=== PATIENT | female | born 1955 | race Caucasian/White ===

== ENCOUNTER 2016-11-22 13:59 | Inpatient (IN) | payer MEDICARE ==
[~2016-11-22] VITALS: Ht 177.8 cm; Wt 127.2 kg
[2016-11-23] MEDS ORDERED: HYDR-3133 PO (10:52)
[2016-11-23] MEDS ORDERED: ALPR.25 PO (10:52)
[2016-11-23] MEDS ORDERED: DIVA500T3 PO (10:52)
[2016-11-23] MEDS ORDERED: COLA100C3 PO (10:52)
[2016-11-23] MEDS ORDERED: OXYC1TAB36 PO (10:52)
[2016-12-10] MEDS ORDERED: INSULIN HUMAN REGULAR 1,000 UNITS/10 ML VIAL SQ PRN (06:15)
[2016-12-10] MEDS ORDERED: LACTATED RINGER'S 1000 ML IV SCH (06:15)
[2016-12-10] MEDS ORDERED: SODIUM CHLORID 0.9% 500 ML IV SCH (06:15)
[2016-12-10] MEDS ORDERED: METOPROLOL TARTRATE 25 MG TAB PO PRN (06:15)
[2016-12-10] MEDS ORDERED: VITA100064 PO (07:00)
[2016-12-10] MEDS ORDERED: SODIUM CHLOR 0.9% 250 ML INJ 250 ML ONE (07:06)
[2016-12-10] MEDS ORDERED: DEXAMETHASONE SOD PHOS 20 MG/5 ML VIAL ONE (07:06)
[2016-12-10] MEDS ORDERED: VANCOMYCIN HCL 1000 MG VIAL ONE (07:07)
[2016-12-10 07:09] VITALS: BP 119/81; PULSE 74; RESP 18; TEMP 97.6; O2SAT 97
[2016-12-10] MEDS ORDERED: TRANEXAMIC PERI-ARTICULAR 3,000 MG/NS 100 ML P-ARTICULR SCH ×2 (07:15)
[2016-12-10] MEDS ORDERED: DEXAMETHASONE SOD PHOS 20 MG/5 ML VIAL IV PRN (07:15)
[2016-12-10] MEDS: POVIDONE IODINE 7.5% SCRUB 118 ML BOTTLE TOP SCH (07:15)
[2016-12-10] MEDS ORDERED: VANCOMYCIN 1000 MG/NS 250 ML (for <70 kg) IV SCH ×2 (07:15)
[2016-12-10] MEDS ORDERED: SODIUM CHLORIDE 0.9% IV SCH (07:15)
[2016-12-10] MEDS ORDERED: EPINEPHRINE PERIART SCH ×4 (07:15)
[2016-12-10] MEDS: CHLORHEXIDINE GLUCONATE 4% SOLN 120 ML BTL TOP SCH (07:15)
[2016-12-10] MEDS ORDERED: ROPIVACAINE PERIART SCH ×4 (07:15)
[2016-12-10] MEDS ORDERED: TRANEXAMIC ACID IV SCH (07:15)
[2016-12-10] MEDS ORDERED: [UNRECOGNIZED DRUG - OTHER] PERIART SCH ×4 (07:15)
[2016-12-10] MEDS ORDERED: EXPAREL PERI-ARTICULAR INJECTION (TOTAL VOL. 60 ML) P-ARTICULR SCH ×2 (07:15)
[2016-12-10] MEDS: SODIUM CHLOR 0.9% 1000 ML INJ 1,000 ML IV SCH ×2 (07:17→17:17)
[2016-12-10] MEDS ORDERED: ENOX40P SQ (07:24)
[2016-12-10] MEDS ORDERED: PERC10TA27 PO (07:25)
[2016-12-10] MEDS ORDERED: NALOXONE HCL 0.4 MG/ML AMP IV PRN (07:30)
[2016-12-10] MEDS ORDERED: ONDANSETRON HCL 4 MG/2 ML VIAL IVP PRN (07:30)
[2016-12-10] MEDS ORDERED: DOCUSATE SODIUM 100 MG CAP PO PRN (07:30)
[2016-12-10] MEDS ORDERED: MORPHINE SULFATE 4 MG/ML INJ IV PUSH PRN (07:30)
[2016-12-10] MEDS ORDERED: MORPHINE SULFATE 30 MG/30 ML PCA IV SCH (07:30)
[2016-12-10] MEDS ORDERED: ALUMINUM/MAGNESIUM/SIMETH 30 ML CUP PO PRN (07:30)
[2016-12-10] MEDS ORDERED: Post-op Orders (for Pharmacy) MISC XX ONE (07:30)
[2016-12-10] MEDS ORDERED: BISACODYL 10 MG SUPP PR PRN (07:30)
[2016-12-10] MEDS ORDERED: SODIUM CHLORIDE 0.9% FLUSH 5 ML FLUSH IVF PRN (07:30)
[2016-12-10] MEDS: CLINDAMYCIN 900 MG/NS 100 ML IV SCH ×4 (07:30→08:49)
[2016-12-10] MEDS ORDERED: diphenhydrAMINE HCL 50 MG/ML VIAL IV PRN (07:30)
[2016-12-10] MEDS ORDERED: fentaNYL CITRATE 250 MCG/5 ML AMP ONE (07:46)
[2016-12-10] MEDS ORDERED: ACETAMINOPHEN 1000 MG/100 ML VIAL IV ONE (07:46)
[2016-12-10] MEDS ORDERED: HYDROmorphone HCL PF 2 MG/ML VIAL ONE (07:46)
[2016-12-10] MEDS ORDERED: MIDAZOLAM HCL 2 MG/2 ML VIAL ONE (07:53)
[2016-12-10] MEDS ORDERED: DEXAMETHASONE SOD PHOS 4 MG/ML VIAL ONE (07:53)
[2016-12-10] MEDS ORDERED: APREPITANT 40 MG CAP ONE (07:53)
[2016-12-10] MEDS: SODIUM CHLORIDE 0.9% FLUSH 5 ML FLUSH IVF SCH ×2 (09:00→21:25)
[2016-12-10] MEDS ORDERED: GENTAMICIN SULFATE 80 MG/2 ML VIAL IRRIGATION ONE (09:36)
[2016-12-10] MEDS ORDERED: *PROMETHAZINE 25 MG/ML VIAL PERIprocedural use ONLY ONE (11:40)
[2016-12-10] MEDS ORDERED: *morphine SULFATE 8 MG/ML PERIprocedure ONLY ONE ×2 (11:58→12:17)
--- NOTE | 2016-12-10 12:43 | RADRPT ---
EXAM DATE/TIME: 12/10/2016 12:01 [facility] COMPARISON: No previous studies available for comparison. INDICATIONS : Post op left knee replacement surgery MEDICAL HISTORY : None. SURGICAL HISTORY : None. ENCOUNTER: Initial ACUITY: 1 day PAIN SCORE: 8/10 LOCATION: Left knee FINDINGS: There is placement of total knee prosthesis which appears to be well-seated. CONCLUSION: Well-seated total knee prosthesis Raymundo Cornelius MD on December 10, 2016 at 12:41 Board Certified Radiologist. This report was verified electronically.
[2016-12-10] MEDS ORDERED: BUPIVACAINE LIPOSOME PF 1.3% 20 ML VIAL ONE (12:57)
[2016-12-10] MEDS ORDERED: ONDANSETRON HCL 4 MG/2 ML VIAL IV PUSH ONE (13:27)
[2016-12-10] MEDS ORDERED: ePHEDrine/NS 50 MG/5 ML SYR IV ONE (13:27)
[2016-12-10] MEDS ORDERED: LACTATED RINGER'S 1000 ML INJ 1,000 ML IV ONE (13:27)
[2016-12-10] MEDS ORDERED: PROPOFOL 200 MG/20 ML AMP IV ONE (13:27)
[2016-12-10 14:00] VITALS: BP 123/75; PULSE 71; RESP 18; TEMP 96; O2SAT 95
[2016-12-10] MEDS: PCA - TOTAL MG MORPHINE DELIVERED PER SHIFT SCH ×2 (14:00→22:00)
[2016-12-10] MEDS: hydrOXYzine HCL 25 MG TAB PO SCH ×2 (14:10→17:01)
[2016-12-10] MEDS: oxyCODONE/ACETAMINOPHEN 5 MG/325 MG TAB PO PRN ×2 (14:10→21:24)
[2016-12-10] MEDS: CLINDAMYCIN INJ 900 MG in SODIUM CHLORIDE 0.9% INJ 100 ML IV SCH (17:01)
--- NOTE | 2016-12-10 17:19 | PD.CONS ---
HPI Service [facility] Consult Requested By Dr. Watts Reason for Consult Apical management Primary Care Physician Mey Sofia MD Diagnoses: History of Present Illness Patient is a very pleasant 60-year-old female who is admitted under Dr. Arturo Watts service and underwent left total knee arthroplasty today. Patient did has history of Mnire's disease, seizure disorder chronic with the cardia. Which are all well controlled. Patient is now seen post op , appears very comfortable on TRANSFUSION AIDE pump and looking forward to more physical therapy. Last time she had her right knee arthroplasty done in October and went home. This time patient had decided to go to rehabilitation for further therapy. Review of Systems Constitutional: DENIES: Fever, Weight loss, Chills, Change in appetite Eyes: DENIES: Blurred vision, Double Vision Ears, nose, mouth, throat: DENIES: Tinnitus, Ear Pain, Epistaxis, Odynophagia Respiratory: DENIES: Cough, Hemoptysis, Sputum production, Shortness of breath Cardiovascular: DENIES: Chest pain, Palpitations, Dyspnea on Exertion, Lower Extremity Edema, Orthopnea Gastrointestinal: DENIES: Black stools, Bloody stools, Difficulty Swallowing, Anorexia Genitourinary: DENIES: Urgency, Hematuria, Vaginal discharge Musculoskeletal: DENIES: Joint pain, Stiffness Integumentary: DENIES: Pruritus Hematologic/lymphatic: DENIES: Bruising Immunologic/allergic: DENIES: Urticaria Neurologic: DENIES: Headache, Speech Problems, Tremor Psychiatric: DENIES: Suicidal Ideation, Homicidal Ideation Past Family Social History Allergies: Coded Allergies: Adhesives (Verified Allergy, Unknown, mclean, 12/10/16) Aleve (Verified Allergy, Unknown, ANAPHYLAXIS, 12/10/16) Aspirin (Verified Allergy, Unknown, ANAPHYLAXIS, 12/10/16) Keflex (Verified Allergy, Unknown, ANAPHYLAXIS, 12/10/16) Latex (Verified Allergy, Unknown, blisters, 12/10/16) Nonsteroidal Anti-Inflammatory Agts (Verified Allergy, Unknown, Anaphylaxis, 12/10/16) Penicillin (Verified Allergy, Unknown, ANAPHYLAXIS, 12/10/16) Past Medical History History of Mnire's disease for 12 years 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 Seizure disorder urticaria of unknown origin Reported Medications She is on Xanax 0.25 mg at bedtime Depakote 500 mg at bedtime Hydroxyzine 25 mg every 8 for tachycardia TRANSFUSION AIDE pump Active Ordered Medications See EMR Family History Noncontributory Social History Denies smoking or alcohol use Physical Exam Vital Signs Vital Signs Date Time Temp Pulse Resp B/P Pulse Ox O2 Delivery O2 Flow Rate FiO2 12/10/16 14:00 96.0 71 18 123/75 95 12/10/16 13:12 97.9 84 14 109/52 95 Nasal Cannula 2 12/10/16 13:00 78 12 123/70 94 12/10/16 12:45 78 16 115/79 90 12/10/16 12:30 82 12 125/95 94 12/10/16 12:30 12 12/10/16 12:15 85 14 136/70 94 12/10/16 12:00 88 14 164/72 94 12/10/16 11:45 94 12 161/87 97 Simple Mask 12/10/16 11:39 97.5 101 12 104/80 97 Simple Mask 6 12/10/16 07:09 97.6 74 18 119/81 97 Physical Exam GENERAL: This is a well-nourished, well-developed patient, in no apparent distress. SKIN: No rashes, ecchymoses or lesions. Cool and dry. HEAD: Atraumatic. Normocephalic. EYES: Pupils equal round and reactive. Extraocular motions intact. No scleral icterus. ENT: Nose without bleeding, . Throat without erythema, Airway patent. NECK: Trachea midline. No JVD or lymphadenopathy. Supple, nontender, no meningeal signs. CARDIOVASCULAR: Regular rate and rhythm without murmurs, gallops, or rubs. RESPIRATORY: Clear to auscultation. Breath sounds equal bilaterally. No wheezes , rales, or rhonchi. GASTROINTESTINAL: Abdomen soft, non-tender, nondistended. No hepato-splenomegaly , or palpable masses. No guarding. MUSCULOSKELETAL: Extremities without clubbing, cyanosis, or edema. No joint tenderness, effusion, or edema noted. No calf tenderness. Negative Homans sign bilaterally. right LE on CPM gutiérrez in place NEUROLOGICAL: grossly unremarkable Laboratory Laboratory Tests Test 12/10/16 06:55 Blood Type O POSITIVE Antibody Screen NEGATIVE Imaging Last Impressions Knee X-Ray 12/10/16 6511 Signed Impressions: Service Date/Time: Saturday, December 10, 2016 12:01 - CONCLUSION: Well-seated total knee prosthesis Raymundo Cornelius MD Assessment and Plan Assessment and Plan 61-year-old female Status post left total knee arthroplasty Orthopedic service following PT daily When necessary IV pain meds and by mouth per primary service history of seizure disorder/benign temporal lobe tumor. Continue on Depakote for seizure prophylaxis History of urticaria of unknown origin Continue on hydroxyzine 25 mg every 8 History of anxiety disorder Continue on her Xanax 0.25 mg at bedtime Lovenox for DVT prophylaxis Case management this time patient wants to go to rehabilitation for detention facility for physical therapy Thank you for this consult we'll follow patient in-house with you Prashanth Hector MD Dec 10, 2016 17:19
[2016-12-10 18:01] VITALS: O2SAT 94
[2016-12-10 20:12] VITALS: O2SAT 94
[2016-12-10 20:30] VITALS: BP 117/66; PULSE 72; RESP 17; TEMP 96.1; O2SAT 96
[2016-12-10] MEDS: ALPRAZolam 0.25 MG TAB PO SCH (21:23)
[2016-12-10] MEDS: DIVALPROEX SODIUM E.R. 500 MG TAB PO SCH (21:23)
[2016-12-11] VITALS (7 sets, daily range): BP systolic 102–182; BP diastolic 56–86; PULSE 63–103; RESP 16–18; TEMP 95.8–98.9; O2SAT 97–100
[2016-12-11] MEDS: oxyCODONE/ACETAMINOPHEN 5 MG/325 MG TAB PO PRN ×4 (01:48→15:36)
[2016-12-11] MEDS: CLINDAMYCIN INJ 900 MG in SODIUM CHLORIDE 0.9% INJ 100 ML IV SCH ×2 (01:49→11:00)
[2016-12-11] MEDS: SODIUM CHLOR 0.9% 1000 ML INJ 1,000 ML IV SCH ×2 (02:48→12:43)
[2016-12-11] MEDS: hydrOXYzine HCL 25 MG TAB PO SCH ×3 (04:42→20:04)
[2016-12-11] MEDS: PCA - TOTAL MG MORPHINE DELIVERED PER SHIFT SCH ×3 (06:00→20:00)
[2016-12-11 06:11] LABS: HEMATOCRIT 34.9 % (35.0-46.0); MEAN CELL VOLUME 81.3 FL (80.0-100.0); MEAN CORPUSCULAR HGB CONC 33.2 % (32.0-36.0); PLATELET COUNT 232 TH/MM3 (150-450); RED CELL DISTRIBUTION WIDTH 15.4 % (11.6-17.2); REVIEW FLAG FINAL; WHITE BLOOD COUNT 9.9 TH/MM3 (4.0-11.0)
[2016-12-11] MEDS: CHLORHEXIDINE GLUCONATE 4% SOLN 120 ML BTL TOP SCH (06:12)
[2016-12-11] MEDS: POVIDONE IODINE 7.5% SCRUB 118 ML BOTTLE TOP SCH (06:12)
[2016-12-11 06:35] LABS: BICARBONATE 28.1 MEQ/L (21.0-32.0); POTASSIUM 4.1 MEQ/L (3.5-5.1)
--- NOTE | 2016-12-11 08:48 | PD.ORT.PN ---
Subjective Post Op Day #: 1 Subjective Remarks painful but tolerable. Objective Vitals Vital Signs Date Time Temp Pulse Resp B/P Pulse Ox O2 Delivery O2 Flow Rate FiO2 12/11/16 08:00 95.8 69 18 119/63 98 12/11/16 06:00 16 12/11/16 04:15 96.2 70 16 102/56 97 12/11/16 04:00 Room Air 12/11/16 00:34 96.2 63 16 120/62 97 12/11/16 00:00 Room Air 12/10/16 22:00 16 12/10/16 20:30 96.1 72 17 117/66 96 12/10/16 20:12 94 12/10/16 20:00 Room Air 12/10/16 18:01 94 12/10/16 14:00 96.0 71 18 123/75 95 12/10/16 13:12 97.9 84 14 109/52 95 Nasal Cannula 2 12/10/16 13:00 78 12 123/70 94 12/10/16 12:45 78 16 115/79 90 12/10/16 12:30 82 12 125/95 94 12/10/16 12:30 12 12/10/16 12:15 85 14 136/70 94 12/10/16 12:00 88 14 164/72 94 12/10/16 11:45 94 12 161/87 97 Simple Mask 12/10/16 11:39 97.5 101 12 104/80 97 Simple Mask 6 I/O 12/10/16 12/10/16 12/10/16 12/11/16 12/11/16 12/11/16 07:00 15:00 23:00 07:00 15:00 23:00 Intake Total 160 ml 1448 ml 1247 ml Output Total 625 ml 600 ml Balance 160 ml 823 ml 647 ml Intake Oral 720 ml 360 ml IV Total 160 ml 728 ml 887 ml Output Urine Total 625 ml 600 ml # Voids 2 # Bowel Movements 0 0 Result Diagram: 12/11/16 0550 12/11/16 0530 Objective Remarks in bed, nad dressing c/d/i neg homans nvi Assessment & Plan Ortho Post Op Day #: 1 Problem List: Assessment and Plan s/p L TKA wbat daily dressing change lovenox d/c planning to snf 3008 signed rx in chart f/up dr. orta 2 weeks Arturo Ramires Dec 11, 2016 08:48
--- NOTE | 2016-12-11 08:50 | HHI.DCPOC ---
Discharge Care Plan Diagnosis: (1) Primary localized osteoarthrosis, lower leg Your Health Problems Are: Difficulty with ADL Goals to Promote Your Health * To prevent worsening of your condition and complications * To maintain your health at the optimal level Directions to Meet Your Goals Take your medications as prescribed Follow your dietary instruction Follow activity as directed Keep your appointments as scheduled Take your immunizations and boosters as scheduled If your symptoms worsen call your PCP, if no PCP go to Urgent Care Center or Emergency Room Smoking is Dangerous to Your Health. Avoid second hand smoke Call the 24-hour hour crisis hotline for domestic abuse at Arturo Ramires Dec 11, 2016 08:50
[2016-12-11] MEDS ORDERED: CPMMACHINE (08:51)
[2016-12-11] MEDS ORDERED: INFLUENZA VIRUS VACCINE (QUADRIVALENT) 0.5 ML SYR IM ONE (09:00)
[2016-12-11] MEDS ORDERED: MAGNESIUM HYDROXIDE SUSP 30 ML CUP PO ONE (09:30)
[2016-12-11] MEDS ORDERED: DOCUSATE SODIUM 50 MG/SENNA 8.6 MG TAB PO ONE (09:30)
[2016-12-11] MEDS ORDERED: PNEUMOCOCCAL POLYVALENT INJ 25 MCG/0.5 ML SYR IM ONE (10:00)
[2016-12-11] MEDS: CHOLECALCIFEROL (VIT D3) 1000 UNIT TAB PO SCH (11:03)
[2016-12-11] MEDS: ENOXAPARIN SODIUM 40 MG/0.4 ML SYRINGE SQ SCH (11:04)
[2016-12-11] MEDS: SODIUM CHLORIDE 0.9% FLUSH 5 ML FLUSH IVF SCH ×2 (11:04→19:59)
[2016-12-11] MEDS ORDERED: PANTOPRAZOLE SOD 40 MG DELAYED RELEASE TAB PO ONE (14:15)
--- NOTE | 2016-12-11 14:21 | HHI.PR ---
Subjective Remarks Seen this morning around 11 AM. She says she is feeling well. Denies any chest pain or shortness of breath. She did have nausea previously, however none today. Positive flatus. No bowel movements yet however. Denies any abdominal pain. He does report some acid reflux. She says she typically gets this on a regular basis, however eats a Sarai apple keeps this at bay. She previously had been on PPI before switching to Sarai apples. She is amenable to starting PPI. Objective Vital Signs Date Time Temp Pulse Resp B/P Pulse Ox O2 Delivery O2 Flow Rate FiO2 12/11/16 12:00 96.2 74 18 152/79 98 12/11/16 11:00 Room Air 12/11/16 08:00 95.8 69 18 119/63 98 12/11/16 06:00 16 12/11/16 04:15 96.2 70 16 102/56 97 12/11/16 04:00 Room Air 12/11/16 00:34 96.2 63 16 120/62 97 12/11/16 00:00 Room Air 12/10/16 22:00 16 12/10/16 20:30 96.1 72 17 117/66 96 12/10/16 20:12 94 12/10/16 20:00 Room Air 12/10/16 18:01 94 I/O 12/10/16 12/10/16 12/10/16 12/11/16 12/11/16 12/11/16 07:00 15:00 23:00 07:00 15:00 23:00 Intake Total 160 ml 1448 ml 1247 ml Output Total 625 ml 600 ml Balance 160 ml 823 ml 647 ml Intake Oral 720 ml 360 ml IV Total 160 ml 728 ml 887 ml Output Urine Total 625 ml 600 ml # Voids 2 # Bowel Movements 0 0 Result Diagram: 12/11/16 0550 12/11/16 0530 Objective Remarks GENERAL: Sitting up in bed. Appears comfortable. Alert and oriented 3. SKIN: Warm and dry. HEAD: Normocephalic. EYES: No scleral icterus. No injection or drainage. NECK: Supple, trachea midline. No JVD or lymphadenopathy. CARDIOVASCULAR: Regular rate and rhythm without murmurs, gallops, or rubs. RESPIRATORY: Breath sounds equal bilaterally. No accessory muscle use. GASTROINTESTINAL: Abdomen soft, non-tender, nondistended. MUSCULOSKELETAL: No cyanosis, or edema. Peripheral perfusion intact. Postoperative knee not examined. BACK: Nontender without obvious deformity. No CVA tenderness. A/P Assessment and Plan Postoperative left total knee arthroplasty Postsurgical management as per surgical service PTOT. -Pain management as per surgical service. Await return of bowel function. Laxatives ordered 12/11 History of GERD. -She had previously been on PPI. -With complaints of acid reflux on 12/11 12/11. Start PPI. -Continue to monitor Stopped constipation. Laxatives ordered. Monitor for return of bowel function History of seizure disorder. History of benign temporal lobe tumor Continue on Depakote for seizure prophylaxis. History of urticaria of unknown origin Continue H1 maycol as necessary area Anxiety disorder. Chronic. Continue Xanax at bedtime as needed DVT prophylaxis. As per surgical service. Discharge Planning Physical therapy following. Possible inpatient rehabilitation. Awaiting return of bowel function. -As per surgical service Arturo Bass MD Dec 11, 2016 14:21
[2016-12-11] MEDS ORDERED: oxyCODONE/ACETAMINOPHEN 10 MG/325 MG TAB PO PRN (17:00)
[2016-12-11] MEDS: DOCUSATE SODIUM 100 MG CAP PO SCH (19:57)
[2016-12-11] MEDS: MULTIVITAMINS/MINERALS THERAPEUTIC TAB PO SCH (19:58)
[2016-12-11] MEDS: ALPRAZolam 0.25 MG TAB PO SCH (19:58)
[2016-12-11] MEDS: DIVALPROEX SODIUM E.R. 500 MG TAB PO SCH (19:58)
[2016-12-11] MEDS: oxyCODONE/ACETAMINOPHEN 10 MG/325 MG TAB PO PRN ×2 (19:59→23:24)
[2016-12-12] VITALS (7 sets, daily range): BP systolic 98–139; BP diastolic 55–71; PULSE 75–94; RESP 16–18; TEMP 96–98.3; O2SAT 96–100
[2016-12-12] MEDS: oxyCODONE/ACETAMINOPHEN 10 MG/325 MG TAB PO PRN ×5 (04:12→20:43)
[2016-12-12] MEDS: PCA - TOTAL MG MORPHINE DELIVERED PER SHIFT SCH ×3 (06:00→20:44)
[2016-12-12] MEDS: CHLORHEXIDINE GLUCONATE 4% SOLN 120 ML BTL TOP SCH (07:15)
[2016-12-12] MEDS: POVIDONE IODINE 7.5% SCRUB 118 ML BOTTLE TOP SCH (07:15)
[2016-12-12] MEDS: hydrOXYzine HCL 25 MG TAB PO SCH ×3 (07:54→18:27)
[2016-12-12] MEDS: PANTOPRAZOLE SOD 40 MG DELAYED RELEASE TAB PO SCH (07:54)
[2016-12-12] MEDS: DOCUSATE SODIUM 100 MG CAP PO SCH ×2 (07:54→20:43)
[2016-12-12] MEDS: MULTIVITAMINS/MINERALS THERAPEUTIC TAB PO SCH ×2 (07:54→20:43)
[2016-12-12] MEDS: MAGNESIUM HYDROXIDE SUSP 30 ML CUP PO PRN ×2 (07:55→20:44)
[2016-12-12] MEDS: SODIUM CHLORIDE 0.9% FLUSH 5 ML FLUSH IVF SCH ×2 (07:56→20:43)
[2016-12-12 08:28] LABS: HEMATOCRIT 34.3 % (35.0-46.0); MEAN CORPUSCULAR HEMOGLOBIN 27.3 PG (27.0-34.0); MEAN CORPUSCULAR HGB CONC 33.3 % (32.0-36.0); PLATELET COUNT 241 TH/MM3 (150-450); RED BLOOD COUNT 4.18 MIL/MM3 (4.00-5.30); RED CELL DISTRIBUTION WIDTH 15.8 % (11.6-17.2); REVIEW FLAG FINAL; WHITE BLOOD COUNT 9.1 TH/MM3 (4.0-11.0)
--- NOTE | 2016-12-12 08:30 | PD.ORT.PN ---
Subjective Post Op Day #: 2 Subjective Remarks pain was somewhat uncontrolled yesterday and pain meds increased. better now. Objective Vitals Vital Signs Date Time Temp Pulse Resp B/P Pulse Ox O2 Delivery O2 Flow Rate FiO2 12/12/16 08:00 98.2 76 18 131/63 100 12/12/16 06:43 Room Air 12/12/16 05:12 20 12/12/16 04:10 96.0 91 16 98/58 96 12/12/16 00:14 98.3 94 17 138/67 97 12/11/16 20:14 98.9 103 18 182/86 97 12/11/16 16:12 98 21 12/11/16 16:00 96.0 81 18 157/79 100 12/11/16 12:00 96.2 74 18 152/79 98 12/11/16 11:00 Room Air I/O 12/11/16 12/11/16 12/11/16 12/12/16 12/12/16 12/12/16 07:00 15:00 23:00 07:00 15:00 23:00 Intake Total 1247 ml 600 ml 240 ml 720 ml Output Total 600 ml 100 ml Balance 647 ml 600 ml 240 ml 620 ml Intake Oral 360 ml 600 ml 240 ml 720 ml IV Total 887 ml Output Urine Total 600 ml Drainage Total 100 ml # Voids 2 3 3 6 # Bowel Movements 0 0 0 0 Result Diagram: 12/12/16 0720 12/11/16 0530 Objective Remarks in bed, nad incision no erythema, no drainage neg homans nvi Assessment & Plan Ortho Post Op Day #: 2 Problem List: Assessment and Plan s/p L TKA wbat daily dressing change lovenox percocet 10mg d/c planning to snf 3008 signed rx in chart f/up dr. orta 2 weeks Arturo Ramires Dec 12, 2016 08:30
[2016-12-12 08:53] LABS: BICARBONATE 28.8 MEQ/L (21.0-32.0)
[2016-12-12] MEDS: CHOLECALCIFEROL (VIT D3) 1000 UNIT TAB PO SCH (09:00)
[2016-12-12 09:09] LABS: POTASSIUM 4.2 MEQ/L (3.5-5.1)
[2016-12-12] MEDS: SODIUM CHLOR 0.9% 1000 ML INJ 1,000 ML IV SCH ×2 (09:17→19:17)
[2016-12-12] MEDS ORDERED: DOCUSATE SODIUM 50 MG/SENNA 8.6 MG TAB PO ONE (10:00)
[2016-12-12] MEDS ORDERED: MAGNESIUM HYDROXIDE SUSP 30 ML CUP PO ONE (11:00)
[2016-12-12] MEDS: ENOXAPARIN SODIUM 40 MG/0.4 ML SYRINGE SQ SCH (11:29)
[2016-12-12] MEDS: DIVALPROEX SODIUM E.R. 500 MG TAB PO SCH (20:43)
[2016-12-12] MEDS: ALPRAZolam 0.25 MG TAB PO SCH (20:43)
[2016-12-12] MEDS ORDERED: MAGNESIUM CITRATE SOLN 300 ML BTL PO ONE (22:00)
--- NOTE | 2016-12-12 22:02 | HHI.PR ---
Subjective Remarks Patient seen this morning around 10:30 AM. Patient says she is feeling all right. Reports that acid reflux has improved. She reports poor appetite. Still no bowel movement. Denies any abdominal pain. Enema recommended, patient declines. Objective Vital Signs Date Time Temp Pulse Resp B/P Pulse Ox O2 Delivery O2 Flow Rate FiO2 12/12/16 20:00 97.6 82 18 119/58 100 12/12/16 16:00 96.4 88 18 139/71 100 12/12/16 12:00 97.6 75 18 116/55 98 12/12/16 09:20 98 21 12/12/16 08:00 98.2 76 18 131/63 100 12/12/16 06:43 Room Air 12/12/16 05:12 20 12/12/16 04:10 96.0 91 16 98/58 96 12/12/16 00:14 98.3 94 17 138/67 97 I/O 12/11/16 12/11/16 12/11/16 12/12/16 12/12/16 12/12/16 07:00 15:00 23:00 07:00 15:00 23:00 Intake Total 1247 ml 600 ml 240 ml 720 ml 760 ml Output Total 600 ml 100 ml Balance 647 ml 600 ml 240 ml 620 ml 760 ml Intake Oral 360 ml 600 ml 240 ml 720 ml 760 ml IV Total 887 ml Output Urine Total 600 ml Drainage Total 100 ml # Voids 2 3 3 6 5 # Bowel Movements 0 0 0 0 0 Result Diagram: 12/12/1671912/12/16719 Objective Remarks GENERAL: Sitting up in bed. Appears comfortable. Alert and oriented 3.no changes on exam SKIN: Warm and dry. HEAD: Normocephalic. EYES: No scleral icterus. No injection or drainage. NECK: Supple, trachea midline. No JVD . CARDIOVASCULAR: Regular rate and rhythm without murmurs, gallops, or rubs. RESPIRATORY: Breath sounds equal bilaterally. No accessory muscle use. GASTROINTESTINAL: Abdomen soft, non-tender, nondistended. MUSCULOSKELETAL: No cyanosis, or edema. Peripheral perfusion intact. Postoperative knee not examined. BACK: Nontender without obvious deformity. No CVA tenderness. A/P Assessment and Plan Postoperative left total knee arthroplasty Postsurgical management as per surgical service PTOT. -Pain management as per surgical service. Await return of bowel function. Laxatives ordered again on 12/12. Magnesium citrate ordered. History of GERD. -She had previously been on PPI. -With complaints of acid reflux on 12/11 12/11. Start PPI. -12/12. Acid reflux much improved. -Continue to monitor Postoperative constipation. Laxatives ordered again. Monitor for return of bowel function History of seizure disorder. History of benign temporal lobe tumor Continue on Depakote for seizure prophylaxis. History of urticaria of unknown origin Continue H1 maycol as necessary Anxiety disorder. Chronic. Continue Xanax at bedtime as needed DVT prophylaxis. As per surgical service. Discharge Planning Physical therapy following. Possible inpatient rehabilitation. Awaiting return of bowel function. -As per surgical service Arturo Bass MD Dec 12, 2016 22:02
[2016-12-13] VITALS: BP 127/61; PULSE 85; RESP 18; TEMP 99.2; O2SAT 95
[2016-12-13] MEDS: oxyCODONE/ACETAMINOPHEN 10 MG/325 MG TAB PO PRN ×3 (01:18→09:53)
[2016-12-13] MEDS: SODIUM CHLOR 0.9% 1000 ML INJ 1,000 ML IV SCH (01:46)
[2016-12-13] MEDS: PCA - TOTAL MG MORPHINE DELIVERED PER SHIFT SCH (01:46)
[2016-12-13 04:00] VITALS: BP 114/61; PULSE 82; RESP 20; TEMP 97.4; O2SAT 94
[2016-12-13 04:59] LABS: HEMATOCRIT 37.6 % (35.0-46.0); MEAN CELL VOLUME 81.6 FL (80.0-100.0); MEAN CORPUSCULAR HEMOGLOBIN 26.9 PG (27.0-34.0); PLATELET COUNT 269 TH/MM3 (150-450); RED BLOOD COUNT 4.61 MIL/MM3 (4.00-5.30); RED CELL DISTRIBUTION WIDTH 15.6 % (11.6-17.2); REVIEW FLAG FINAL; WHITE BLOOD COUNT 7.6 TH/MM3 (4.0-11.0)
[2016-12-13 05:29] LABS: BICARBONATE 25.9 MEQ/L (21.0-32.0)
[2016-12-13 08:22] VITALS: BP 146/70; PULSE 89; RESP 16; TEMP 97.5; O2SAT 98
--- NOTE | 2016-12-13 08:37 | PD.ORT.PN ---
Subjective Post Op Day #: 3 Subjective Remarks pain better. doing well with PT. had BM. Objective Vitals Vital Signs Date Time Temp Pulse Resp B/P Pulse Ox O2 Delivery O2 Flow Rate FiO2 12/13/16 04:00 97.4 82 20 114/61 94 12/13/16 00:00 99.2 85 18 127/61 95 12/12/16 20:00 97.6 82 18 119/58 100 12/12/16 16:00 96.4 88 18 139/71 100 12/12/16 12:00 97.6 75 18 116/55 98 12/12/16 09:20 98 21 I/O 12/12/16 12/12/16 12/12/16 12/13/16 12/13/16 12/13/16 07:00 15:00 23:00 07:00 15:00 23:00 Intake Total 720 ml 760 ml 365 ml 480 ml Output Total 100 ml Balance 620 ml 760 ml 365 ml 480 ml Intake Oral 720 ml 760 ml 365 ml 480 ml Drainage Total 100 ml # Voids 6 5 2 2 # Bowel Movements 0 0 1 Result Diagram: 12/13/16 0430 12/13/16 0430 Objective Remarks in chiar, nad, doing exercises with PT dressing c/d/i neg homans nvi Assessment & Plan Ortho Post Op Day #: 3 Problem List: Assessment and Plan s/p L TKA wbat daily dressing change lovenox percocet 10mg d/c planning to snf - cleared for d/c 3008 signed rx in chart f/up dr. orta 2 weeks Arturo Ramires Dec 13, 2016 08:36
[2016-12-13] MEDS: SODIUM CHLORIDE 0.9% FLUSH 5 ML FLUSH IVF SCH (09:00)
[2016-12-13] MEDS ORDERED: CHOLECALCIFEROL (VIT D3) 5000 UNIT CAP PO SCH (09:30)
[2016-12-13] MEDS: PANTOPRAZOLE SOD 40 MG DELAYED RELEASE TAB PO SCH (09:52)
[2016-12-13] MEDS: DOCUSATE SODIUM 100 MG CAP PO SCH (09:52)
[2016-12-13] MEDS: hydrOXYzine HCL 25 MG TAB PO SCH (09:53)
[2016-12-13] MEDS: MULTIVITAMINS/MINERALS THERAPEUTIC TAB PO SCH (09:53)
[2016-12-13] MEDS: ENOXAPARIN SODIUM 40 MG/0.4 ML SYRINGE SQ SCH (09:54)
--- NOTE | 2016-12-13 13:23 | MP ---
cc: VIC WATTS DATE OF SURGERY 12/10/2016 PREOPERATIVE DIAGNOSIS Left knee osteoarthritis POSTOPERATIVE DIAGNOSES Left knee osteoarthritis PROCEDURE Left total knee arthroplasty SURGEON Dr. Vic Watts METAL WIRE COATING OPERATOR SATINDER Dias ANESTHESIA General with an adductor canal block. ESTIMATED BLOOD LOSS Less than 50 cc TOURNIQUET TIME 70 minutes at 275 mmHg COMPLICATIONS None IMPLANTS USED [employer] Oxinium size 6 posterior stabilized femoral component, size 5 tibial baseplate, size 11 mm polyethylene tibial insert, size 35 mm patella. JUSTIFICATION This patient is a 61-year-old female who has a history of severe end-stage osteoarthritis involving the left knee. She has severe disabling pain with standing, walking, ambulation and weight-bearing activities. She has pain at rest. She has failed greater than three months of nonoperative conservative treatment to include medication therapy, injections, ambulatory assisted aids, home exercise program, activity modification, weight loss attempts. X-ray of the left knee reveals severe end-stage osteoarthritis with [id number] joint space narrowing, subchondral sclerosis, subchondral cyst osteophyte formation and varus deformity. The patient was counseled as to the risks, benefits and alternatives to a total knee arthroplasty. The risk were discussed which include, but are not limited to anesthesia, bleeding, infection, damage to nerves or blood vessels, pain, stiffness, failure of components, blood clots, pulmonary embolism and even . The patient's pain was severe. She favored the benefits over the risks and did wish to proceed with surgery. PROCEDURE IN DETAIL A written consent was obtained. The patient identified by name, taken to the operating room, placed in the supine position and general anesthesia was administered, as well as 900 mg of IV clindamycin and one gram of IV vancomycin. She does have A PENICILLIN ALLERGY. A well-padded tourniquet was placed on the left thigh. The left lower extremity was prepped and draped using as Isopropyl alcohol, Hibiclens solution and Chloraprep solution. After an appropriate time-out was performed, an Esmarch bandage was used to exsanguinate the left lower extremity. The tourniquet inflated to 275 mmHg. A longitudinal incision made over the anterior aspect of the left knee. A medial parapatellar arthrotomy was performed. The patella was everted. Approximately 7.5 mm of patella was resected. A size 35 mm guide was placed. Three drills were placed and the 35 mm trial fit well. Attention was turned to the femur where an intramedullary guide sona was placed and the distal femoral cutting guide was set to remove 9 mm of distal femur 5 degrees off the anatomic valgus axis alignment. An oscillating saw was used to perform the distal femoral cut. Attention was turned to the tibia where extramedullary tibial guide was used and the guide was set to remove 9 mm off the lowest portion of the lateral tibial plateau. The tibia guide was pinned in place and tibia cut was performed. A 9-mm spacer block showed full extension. Attention turned back to the femur where the AP sizing block measured a size 6. The 3 degree external rotation anterior reference guide was used to pin a size [address]. The anterior, posterior and chamfer cuts were performed. A size 6 PCL box guide pinned in placed and the PCL was boxed out with a drilled and an osteotome. The medial and lateral meniscus remnants were removed, as well as bone and soft tissue debris from the posterior portion of the knee. A size 5 tibia baseplate was then pinned in place. The tibia was drilled and punched. Trial components were evaluated and final components were cemented in place. With the 11 mm polyethylene tibial insert, the leg could achieve full extension 0 degrees of flexion to 140. No evidence of tibial lift-off. Varus-valgus balance appeared appropriate and symmetric and the patella was noted to track centrally. The tourniquet was deflated. Bovie cautery was used for hemostasis. The knee was thoroughly irrigated sterile saline pulse lavage antibiotic impregnated solution. The arthrotomy incision was closed #1 Vicryl suture. The subcutaneous tissue layer was closed with 2-0 Vicryl suture. The skin was closed with Dermabond. A sterile dressing applied. The patient tolerated the procedure well. No intraoperative noted. Jomar Ramires, physician retail assistant store manager certified, was present during the entire procedure to include patient positioning and the procedure itself. The medical necessity of a physician retail assistant store manager was indicated due to the complexity of the procedure. He assisted with appropriate manipulation of the leg and also traction of muscle, tendon, bone and neurovascular structures. He assisted with both preparation of the bone and implantation of the prosthetic replacement. MD MAINOR Melchor/ДМИТРИЙ Holley: 12/10/2016/11:04 AM /1:09 PM
--- NOTE | 2016-12-20 10:45 | MD ---
cc: VIC WATTS ADMISSION DATE: 12/10/2016 DISCHARGE DATE: 12/13/2016 ADMISSION DIAGNOSIS Severe degenerative osteoarthritis, left knee. DISCHARGE DIAGNOSIS Severe degenerative osteoarthritis, left knee. HISTORY OF PRESENT ILLNESS Mrs. Ceja is a 61-year-old female who presented to the orthopedic clinic at [facility] for evaluation by Dr. Vic Watts regarding her progressive left knee pain. The patient states she has been treated for this ailment for numerous years and she also has a history of a right total knee arthroplasty with good success. Regarding her left knee she states the pain has been progressive and is currently inhibiting her activities of daily living. She states it is a constant severe aching sensation aggravated by weightbearing activities. She has no significant alleviating factors at this point in time, although in the past she has tried medications, bracing, physical therapy and home exercise program, weight loss attempts as well as multiple injections in the left knee without long-lasting relief. The patient does have x-ray evidence of severe degenerative osteoarthritis of the left knee. While in the office the patient was counseled on her diagnosis and treatment options, risks, benefits and indications were discussed. The patient did elect to proceed with surgical intervention to include a left total knee arthroplasty. DATE OF SURGERY: 12/10/2016, left total knee arthroplasty. POSTOP Postop after surgery the patient was admitted to [facility] where she received appropriate medical management, pain control, DVT prophylaxis as well as physical therapy. DISCHARGE Once being discharged from the hospital the patient is cleared to go to a halfway facility. She is in stable condition. The patient may weight-bear as tolerated. She has received daily dressing changes and has been instructed on appropriate wound care management. The patient has been provided prescriptions for pain control as well as DVT prophylaxis medication. She has also been provided a follow-up appointment to see Dr. Vic Watts in the office approximately 2 weeks from her date of surgery. The patient has asked appropriate questions which have all been answered. Patient is cleared for discharge. Dictated by: RANJITH Schwartz MD MAINOR Melchor/ERIKA /8:40 AM /10:46 AM
== END 2016-12-13 11:15 | DRG 470 ==
LOC: HSDI 12-10 05:42 → N06A 12-10 13:45
PROVIDERS: ADMIT Orthopaedic Surgery Sports Medicine; ATTEND Orthopaedic Surgery Sports Medicine
PROC: 3E0T3CZ (ICD-10-PCS; 2016-12-10)
PROC: 0SRD0J9 Replacement of Left Knee Joint with Synthetic Substitute, Cemented, Open Approach (ICD-10-PCS; principal; 2016-12-10 08:37)
DX: M17.12 Unilateral primary osteoarthritis, left knee (principal); F41.9 Anxiety disorder, unspecified; G40.909 Epilepsy, unspecified, not intractable, without status epilepticus; K21.9 Gastro-esophageal reflux disease without esophagitis; K59.00 Constipation, unspecified; Z23 Encounter for immunization; Z86.011 Personal history of benign neoplasm of the brain
CPT/HCPCS: 73560; 80048; 85027; 86850; 86900; 86901; 90471; 90732; 94150; C1776; C9290; G0009; J0131; J1100; J1170; J1580; J1650; J2250; J2270; J2405; J2550; J3010; J3370; J7030; J7050; J7120; J8501; L1830

== ENCOUNTER → 2016-11-23 | Outpatient (CLI) | payer MEDICARE ==
[~2016-11-23] MED LIST: ALPR.25 PO; COEN1CAP4 PO; COLA100C3 PO; CPMMACHINE; DEPA500T3 PO; DHEA25CA PO; DIVA500T3 PO; ENOX40P SQ; HYDR-3133 PO; HYDR10SO PO; LINA145C PO; LORA10TA PO; MILK250C2 PO; NORC7.5T PO; OMEG100037 PO; OXYC1TAB36 PO; PERC10TA27 PO; TRAM50 PO; VITA100064 PO; VITA1CAP4 PO
[2016-11-23 10:51] LABS: AUTOMATED NEUTROPHIL # 2.1 TH/MM3 (1.8-7.7); EOSINOPHIL # 0.1 TH/MM3 (0-0.4); EOSINOPHIL % 2.3 % (0.0-4.0); HEMATOCRIT 42.2 % (35.0-46.0); HEMO FLAGS DIFF FINAL; LYMPH % 39.6 % (9.0-44.0); LYMPHOCYTE # 1.7 TH/MM3 (1.0-4.8); MEAN CORPUSCULAR HEMOGLOBIN 26.5 PG (27.0-34.0); MEAN CORPUSCULAR HGB CONC 32.8 % (32.0-36.0); MONO % 10.3 % (0.0-8.0); NEUT % 47.8 % (16.0-70.0); PLATELET COUNT 263 TH/MM3 (150-450); RED BLOOD COUNT 5.21 MIL/MM3 (4.00-5.30); RED CELL DISTRIBUTION WIDTH 15.2 % (11.6-17.2); WHITE BLOOD COUNT 4.4 TH/MM3 (4.0-11.0)
[2016-11-23 10:53] LABS: BLOOD, URINE NEG (NEG); COMMENT (UR) CULT NOT INDICATED; CULTURE IF INDICATED CULT NOT INDICATED; GLUCOSE,URINE NEG (NEG); KETONE, URINE NEG (NEG); MUCUS URINE FEW /lpf (OCC); NITRITE,URINE NEG (NEG); PH, URINE 5.5 (5.0-8.5); SQUAMOUS EPITHELIAL CELL URINE <1 /hpf (0-5); URINE COLOR LIGHT-YELLOW (YELLW/STRAW)
[2016-11-23 11:00] LABS: APTT (PATIENT) 28.2 SEC (24.3-30.1); PROTHROMBIN TIME - PATIENT 10.8 SEC (9.8-11.6)
[2016-11-23 11:18] LABS: ALKALINE PHOSPHATASE 80 U/L (45-117); ALT (GPT) 16 U/L (10-53); ANION GAP 8 MEQ/L (5-15); AST (GOT) 6 U/L (15-37); BICARBONATE 27.1 MEQ/L (21.0-32.0); BLOOD UREA NITROGEN 19 MG/DL (7-18); CHLORIDE 106 MEQ/L (98-107); GLOMERULAR FILTRATION RATE 77 ML/MIN (>89); GLUCOSE,FASTING 86 MG/DL (74-99); POTASSIUM 4.2 MEQ/L (3.5-5.1); SODIUM (NA) 141 MEQ/L (136-145); TOTAL BILIRUBIN ADULT 0.4 MG/DL (0.2-1.0)
[2016-11-23 12:05] LABS: WESTERGREN SEDIMENTATION RATE 6 mm/hr (0-30)
--- NOTE | 2016-11-23 13:27 | RADRPT ---
EXAM DATE/TIME: 11/23/2016 11:48 [facility] COMPARISON: KNEE RIGHT LTD (1 OR 2 VWS), October 31, 2015, 12:00. INDICATIONS : Evaluate for pneumonia, pneumothorax, and communicable diseases. Pre-op knee replacement. MEDICAL HISTORY : None. SURGICAL HISTORY : None. ENCOUNTER: Initial ACUITY: 1 day PAIN SCORE: 0/10 LOCATION: chest FINDINGS: PA and lateral views of the chest demonstrate the lungs to be symmetrically aerated without evidence of mass, infiltrate or effusion. The cardiomediastinal contours are unremarkable. Osseous structure s are intact. CONCLUSION: 1. No acute cardiopulmonary findings. Conor Cain MD on November 23, 2016 at 13:25 Board Certified Radiologist. This report was verified electronically.
--- NOTE | 2016-11-23 14:53 | EKG ---
Date Performed: 11/23/2016 Time Performed: 10:37:23 PTAGE: 61 years EKG: Sinus rhythm NORMAL ECG PREVIOUS TRACING 10/07/2015 09.24.11 Since previous tracing, no significant change noted DOCTOR: Cecy Gomez Interpretating Date/Time 11/23/2016 14:53:02
== END ==
LOC: CPRE 10:07
PROVIDERS: ATTEND Orthopaedic Surgery Sports Medicine
DX: Z01.810 Encounter for preprocedural cardiovascular examination (principal); Z01.812 Encounter for preprocedural laboratory examination; M17.12 Unilateral primary osteoarthritis, left knee; Z79.01 Long term (current) use of anticoagulants; M25.50 Pain in unspecified joint
CPT/HCPCS: 36415; 71020; 80053; 81001; 85025; 85610; 85652; 85730; 93005